=== PATIENT | female | born 1990 | race Caucasian/White ===

== ENCOUNTER → 2020-07-30 00:56 | Observation (INO) | END | disposition home or self-care (01) | LOC: 1NENULAB | PROVIDERS: ADMIT Obstetrics & Gynecology; ATTEND Obstetrics & Gynecology ==

== ENCOUNTER 2020-10-07 09:52 | Inpatient (IN) ==
[2020-10-07] MEDS ORDERED: Famotidine 20 MG/2 ML VIAL IVP PRN (11:34)
[2020-10-07] MEDS ORDERED: *HR* FentaNYL (PF) 100 MCG/2 ML VIAL IVP PRN (11:34)
[2020-10-07] MEDS ORDERED: Naloxone 0.4 MG/ML INJ IVP PRN (11:34)
[2020-10-07] MEDS ORDERED: Metoclopramide 10 MG/2 ML VIAL IVP PRN (11:34)
[2020-10-07] MEDS ORDERED: D5% in Lactated Ringers 1,000 ML IVC SCH (11:45)
[2020-10-07 12:14] LABS: Basophils # 0.1 K/mcL (0.0-0.2); Basophils % 0.4 %; Eosinophils % 0.1 %; Hematocrit 34.8 % (35.3-44.9); Hemoglobin 10.9 g/dL (11.5-15.4); Immature Granulocytes % 0.9 % (0-4); Lymphocytes # 1.6 K/mcL (0.6-4.6); Lymphocytes % 11.4 %; Mean Corpuscular HGB Conc 31.3 g/dL (31.6-35.5); Mean Corpuscular Hemoglobin 24.7 pg (28.0-33.3); Mean Corpuscular Volume 78.7 fL (83.0-100.0); Mean Platelet Volume 11.3 fL (9.4-12.4); Monocytes # 0.7 K/mcL (0.0-1.3); Monocytes % 4.9 %; Neutrophils # 11.3 K/mcL (1.6-8.9); Platelet Count 261 K/mcL (140-400); Red Blood Count 4.42 M/mcL (3.82-4.97); Red Cell Distribution Width 13.4 % (11.5-14.5); Segmented Neutrophils % 82.3 %; White Blood Count 13.8 K/mcL (4.3-11.1)
[2020-10-07 12:32] LABS: Alanine Aminotransferase 42 Units/L (7-52); Aspartate Amino Transferase 32 Units/L (13-39); BUN/Creatinine Ratio 14 (6-26); Blood Urea Nitrogen 8 mg/dL (6-20); Creatinine,Urine 56 mg/dL; Lactate Dehydrogenase 165 Units/L (140-271); Protein/Creatinine Ratio,Urine 0.52 mg/mg (0.00-0.20); Uric Acid 4.5 mg/dL (2.3-7.6); eGFR For African Americans > 60 (> 60); eGFR For Non-African Americans > 60 (> 60)
[2020-10-07 12:35] LABS: Amphetamine Screen,Urine Positive ng/mL (Cutoff=1000); Barbiturate Screen,Urine Negative ng/mL (Cutoff=200); Benzodiazepines Screen,Urine Negative ng/mL (Cutoff=200); Cannabinoid Screen,Urine Positive ng/mL (Cutoff = 50); Cocaine Screen,Urine Negative ng/mL (Cutoff= 300); Opiate Screen,Urine Negative ng/mL (Cutoff=300); Phencyclidine Screen,Urine Negative ng/mL (Cutoff=25)
[2020-10-07] MEDS ORDERED: EPHEDrine 50 MG/ML VIAL IVP PRN (12:57)
[2020-10-07] MEDS ORDERED: *HR* FentaNYL (PF) 100 MCG/2 ML VIAL EP ONE (12:57)
[2020-10-07] MEDS ORDERED: Ropivacaine/PF 0.2% 20 ML VIAL EP ONE (12:57)
[2020-10-07] MEDS ORDERED: *HR* FentaNYL (PF) 100 MCG/2 ML VIAL ONE ×2 (13:04→19:31)
[2020-10-07] MEDS ORDERED: Ropivacaine/PF 0.2% 20 ML VIAL ONE (13:04)
[2020-10-07] MEDS: Ringers Solution, Lactated 1,000 ML IVC SCH ×2 (16:27→17:29)
[2020-10-07] MEDS: Epidural Premix (fent/bupiv) 110 ML EP SCH (17:20)
[2020-10-07] MEDS ORDERED: Calcium Gluconate 1,000 MG/10 ML VIAL IVP PRN (18:02)
[2020-10-07] MEDS: Magnesium Sulf 20 gm/SW 500mL 20 GM/500 ML IV.SOLN IVC SCH (18:52)
[2020-10-08] MEDS: Epidural Premix (fent/bupiv) 110 ML EP SCH (00:10)
[2020-10-08] MEDS ORDERED: Oxytocin 20 units/ LR 1000 mL 20 UNIT/1,000 ML BAG IVC SCH ×2 (00:30→04:30)
[2020-10-08] MEDS ORDERED: Benzocaine/Menthol 56 GM AEROSOL SPRAY TP PRN (04:20)
[2020-10-08] MEDS ORDERED: Acetaminophen 325 MG TABLET PO PRN (04:20)
[2020-10-08] MEDS ORDERED: Ibuprofen 600 MG TABLET PO PRN (04:20)
[2020-10-08] MEDS ORDERED: Sennosides 8.6 MG TABLET PO PRN (04:20)
[2020-10-08] MEDS ORDERED: Lanolin 7 G OINT...G. TP PRN (04:20)
[2020-10-08] MEDS: Magnesium Sulf 20 gm/SW 500mL 20 GM/500 ML IV.SOLN IVC SCH (04:28)
[2020-10-08] MEDS ORDERED: Ondansetron 4 MG/2 ML VIAL IVP ONE (04:49)
[2020-10-08] MEDS ORDERED: Magnesium Sulf 20 gm/SW 500mL 20 GM/500 ML IV.SOLN IVC SCH (08:11)
[2020-10-08] MEDS ORDERED: Calcium Gluconate 1,000 MG/10 ML VIAL IVP PRN (08:11)
[2020-10-08] MEDS ORDERED: Prenatal Vit/FA 1 EACH TABLET PO SCH (09:00)
[2020-10-08] MEDS ORDERED: *HR* Buprenorphine HCl 2 MG SUBLINGUAL TABLET SL SCH (09:00)
[2020-10-08] MEDS: *HR* Buprenorphine HCl 2 MG SUBLINGUAL TABLET SL SCH ×2 (09:46→21:13)
[2020-10-08] MEDS ORDERED: Ringers Solution, Lactated 500 ML ONE (14:20)
[2020-10-09] MEDS: *HR* Buprenorphine HCl 2 MG SUBLINGUAL TABLET SL SCH ×2 (08:48→21:39)
[2020-10-09] MEDS: *HR* Buprenorphine HCl 8 MG TAB.SUBL SL SCH ×2 (08:48→21:38)
[2020-10-09 09:32] LABS: Basophils # 0.1 K/mcL (0.0-0.2); Basophils % 0.3 %; Eosinophils % 0.1 %; Hematocrit 31.2 % (35.3-44.9); Immature Granulocytes % 1.2 % (0-4); Lymphocytes # 2.3 K/mcL (0.6-4.6); Lymphocytes % 13.2 %; Mean Corpuscular HGB Conc 29.8 g/dL (31.6-35.5); Mean Corpuscular Volume 80.6 fL (83.0-100.0); Mean Platelet Volume 10.4 fL (9.4-12.4); Monocytes # 1.1 K/mcL (0.0-1.3); Monocytes % 6.3 %; Neutrophils # 13.5 K/mcL (1.6-8.9); Nucleated Red Blood Cells 0.1 /100 WBC (0); Platelet Count 292 K/mcL (140-400); Red Blood Count 3.87 M/mcL (3.82-4.97); Segmented Neutrophils % 78.9 %; White Blood Count 17.1 K/mcL (4.3-11.1)
[2020-10-09 09:35] LABS: Hemoglobin 9.3 g/dL (11.5-15.4)
[2020-10-09 09:50] LABS: Alanine Aminotransferase 29 Units/L (7-52); Aspartate Amino Transferase 27 Units/L (13-39); BUN/Creatinine Ratio 10 (6-26); Blood Urea Nitrogen 7 mg/dL (6-20); Lactate Dehydrogenase 245 Units/L (140-271); Uric Acid 4.8 mg/dL (2.3-7.6); eGFR For African Americans > 60 (> 60); eGFR For Non-African Americans > 60 (> 60)
[2020-10-10 08:36] VITALS: BP 116/74
[2020-10-10] MEDS: *HR* Buprenorphine HCl 2 MG SUBLINGUAL TABLET SL SCH (09:27)
[2020-10-10] MEDS: *HR* Buprenorphine HCl 8 MG TAB.SUBL SL SCH (09:28)
== END 2020-10-10 17:26 | disposition home or self-care (01) | DRG 560 ==
LOC: 1NENULAB → OBSVTOIN 09:52 → 1NENUOBS 10-08 07:45
PROVIDERS: ADMIT Obstetrics & Gynecology; ATTEND Obstetrics & Gynecology